=== PATIENT | male | born 1975 | race Caucasian/White ===

== ENCOUNTER 2020-05-01 11:06 | Emergency (ER) | payer BC ==
[~2020-05-01] VITALS: Ht 180.3 cm; Wt 77.5 kg
[2020-05-01] MEDS ORDERED: NS 1,000 ML IV ONE (11:30)
[2020-05-01 11:43] LABS: BASO % 0.5 % (0.0-1.0); EOS % 0.1 % (0.0-3.0); HEMATOCRIT 41.5 % (42.0-52.0); HEMOGLOBIN 14.1 g/dl (13.5-17.5); LYMPH % 12.1 % (24.0-44.0); MEAN CORPUSCULAR HEMOGLOBIN 31.1 pg (27.0-33.0); MEAN CORPUSCULAR VOLUME 91.4 fl (80.0-96.0); MONO # 1.7 10^3/uL (0.0-0.8); MONO % 19.6 % (0.0-5.0); NEUTROPHILS # 5.8 10^3/uL (1.5-8.5); NEUTROPHILS % 67.3 % (36.0-66.0); PLATELET COUNT, AUTOMATED 308 10^3/uL (150-450); RED BLOOD COUNT 4.54 10^6/uL (4.30-6.10); WHITE BLOOD COUNT 8.5 10^3/uL (4.0-10.0)
[2020-05-01 12:15] LABS: ALBUMIN 3.2 GM/DL (3.2-5.2); ALT/SGPT 48 U/L (12-78); BILIRUBIN,DIRECT 0.2 MG/DL (0.0-0.2); BILIRUBIN,TOTAL 0.4 MG/DL (0.2-1.0); LIPASE 49 U/L (73-393); TOTAL PROTEIN 7.6 GM/DL (6.4-8.2)
[2020-05-01] MEDS ORDERED: KETOROLAC 30 MG/ML 1ML VIAL IV ONE (12:15)
--- NOTE | 2020-05-01 13:15 | REP ---
RIGHT UPPER QUADRANT ULTRASOUND: Real-time sonographic evaluation of the right upper quadrant performed. Gallbladder demonstrates no evidence of intraluminal sludge or calculi, wall thickening or pericholecystic fluid. There is no intrahepatic or extrahepatic biliary dilatation, common bile duct measuring 4 mm. Liver demonstrates an 8 mm cyst in the left lobe. Two cysts are seen in the right lobe of the liver measuring 1.1 cm and 2.3 cm in maximum diameter. No pancreatic abnormality is seen. Right kidney demonstrates no hydronephrosis with normal size 10.9 cm in length. IMPRESSION: Three cysts are identified in the liver. Otherwise, negative right upper quadrant ultrasound. Electronically Signed by Vaibhav Carcamo MD 05/02/2020 04:38 P
[2020-05-01 13:39] LABS: CK-MB VALUE MASS < 1.0 NG/ML (<3.6); CPK CREATINE PHOSPHOKINASE 178 U/L (39-308); MB/CK RELATIVE INDEX 0.56 (< OR =4); TROPONIN I < 0.02 NG/ML (< 0.10)
[2020-05-01] MEDS ORDERED: GI COCKTAIL 50ML BTL(HYOSCYAMINE/MAALOX/LIDOCAINE VISCOUS)(1:3:1) PO ONE (14:00)
[2020-05-01] MEDS ORDERED: CARA1TAB6 PO (14:02)
[2020-05-01] MEDS ORDERED: ZOFR8TAB24 PO (14:05)
[2020-05-01 14:09] VITALS: BP 121/98
--- NOTE | 2020-05-02 09:31 | ECGEPIP ---
[facility] - ED Test Date: 2020-05-01 Pat Name: JAKE GRACIA Department: Room: - Gender: Male Manager Of Patient: CYRIL : 1975 Requested By: MISTI Knight PA-C Order Number: [id number] Reading MD: Mahamed Álvarez Measurements Intervals [place] Rate: 108 P: 57 MD: 138 QRS: 1 QRSD: 74 T: 41 QT: 326 QTc: 437 Interpretive Statements SINUS TACHYCARDIA NO PRIORS FOR COMPARISON Electronically Signed on 05-02-2020 9:31:15 EDT by Mahamed Álvarez
== END 2020-05-01 14:28 | disposition home or self-care (01) ==
LOC: M ED 11:06
DX: R10.9 Unspecified abdominal pain (principal); R11.2 Nausea with vomiting, unspecified; R19.7 Diarrhea, unspecified; Z79.899 Other long term (current) drug therapy; F17.210 Nicotine dependence, cigarettes, uncomplicated
CPT/HCPCS: 76705; 80047; 80076; 81001; 82550; 82553; 83690; 84484; 85025; 87086; 93005; 96361; 96374; 99284; J1885

== ENCOUNTER → 2020-05-02 | Outpatient (REF) | payer BC ==
[~2020-05-02] MED LIST: CARA1TAB6 PO; ZOFR8TAB24 PO
== END ==
LOC: M LAB REF 17:30
PROVIDERS: ATTEND Physician Assistant Medical
DX: R19.7 Diarrhea, unspecified (principal)